=== PATIENT | female | born 1990 | race American Indian/Alaskan Native ===

== ENCOUNTER 2016-12-30 05:15 | Inpatient (IN) | payer OTHER ==
[2016-12-30 05:24] VITALS: BMI 22.8
--- NOTE | 2016-12-30 06:09 | OBHP ---
Datetime: 12/30/2016 06:05 IP Adm Impression: Term, intrauterine ; Active labor; Intact Membranes IP Admit Plan: Admit to unit; Initiate labor protocol Admit Comment, IP Provider: at 39.5weeks came with c/o ctxs started at 2.15 am , 05/05, q2-4 mi n, no vb, lof,+fm. obhx primi pmh den medc pnv all nkda psh den soch den ve 100/0 a/p g10 at 39/5weeks in labor dmit to l_d npo/ivf labs cot henri and efm pain magement gbs for unknown gbs Dr Roman aware Pelvic Type - PN: Adequate Extremities - PN: Normal Abdomen - PN: Normal Back - PN: Normal Breast - PN: Normal Lungs - PN: Normal Heart - PN: Normal Thyroid - PN: Normal Neurologic - PN: Normal HEENT - PN: Normal General - PN: Normal FHR - Baseline A Provider: 130 Contraction Comments Provider: q1-4 Comments, ACOG Physical Exam: gravid,non tender ext no edea,no calf ten IP Hx Assessment: The History has been Reviewed and is Current EGA AdmitDate IP: 39.5 Vital Signs Provider: Reviewed; Within Normal Limits IP Chief Complaint: Uterine contractions NICHD Variability Prov Fetus A: Moderate 6-25bpm NICHD Accel Fetus A IP Provider: [id number] FHR Category Provider Fetus A: Category I Dilatation, Provider: 4 Effacement, Provider: 100 Station, Provider: 0 Genitourinary Exam: Normal DTRs - PN: Normal
[2016-12-30] MEDS ORDERED: Lactated Ringer's 1,000 ML IV SCH (06:15)
[2016-12-30 07:06] LABS: BASO # 0.1 K/uL (0.0-0.2); BASO % 0.9 % (0.0-2.0); EOS # 0.1 K/uL (0.0-0.7); EOS % 0.4 % (0.0-4.0); HEMATOCRIT 31.3 % (34.0-47.0); LYMPH # 2.3 K/uL (1.0-4.3); LYMPH % 16.8 % (20.0-40.0); MEAN CORPUSCULAR HGB CONC 32.9 g/dL (33.0-37.0); MEAN PLATELET VOLUME 9.7 fL (7.2-11.7); MONO % 7.3 % (0.0-10.0); RED CELL DISTRIBUTION WIDTH 15.1 % (11.5-14.5); WHITE BLOOD COUNT 13.8 K/uL (4.8-10.8)
[2016-12-30 07:22] LABS: CHLORIDE 102 mmol/L (98-107); SODIUM 135 mmol/L (132-148)
[2016-12-30 07:25] LABS: ALB/GLOB RATIO 0.9 (1.0-2.1); ALKALINE PHOSPHATASE 201 U/L (38-126); ALT/SGPT 14 U/L (9-52); AST/SGOT 26 U/L (14-36); BILIRUBIN,TOTAL 0.6 mg/dL (0.2-1.3); BLOOD UREA NITROGEN 7 mg/dL (7-17); CARBON DIOXIDE 22 mmol/L (22-30); GFR AFRICAN-AMERICAN > 60; TOTAL PROTEIN 7.1 g/dL (6.3-8.3)
[2016-12-30 07:26] LABS: CALCIUM 8.9 mg/dl (8.6-10.4); GLUCOSE,RANDOM 97 mg/dL (65-105)
[2016-12-30 07:47] LABS: URINE BACTERIA RARE (<OCC); URINE BILIRUBIN NEGATIVE (NEGATIVE); URINE BLOOD NEGATIVE (NEGATIVE); URINE COLOR Yellow (YELLOW); URINE GLUCOSE (UA) NORMAL (Normal); URINE KETONE NEGATIVE (NEGATIVE); URINE LEUKOCYTE ESTERASE NEG Leu/uL (Negative); URINE PROTEIN NEGATIVE (NEGATIVE); URINE UROBILINOGEN NORMAL mg/dL (0.2-1.0); WBC URINE 2 /hpf (0-5)
[2016-12-30] MEDS ORDERED: Bupivacaine 0.125%/FentaNYL 200 ML EPI ONE (08:04)
--- NOTE | 2016-12-30 08:42 | OBPN ---
Datetime: 12/30/2016 08:33 IP Progress Impression: Normal progression of labor; Reassuring heart rate IP Procedures: Artificial ROM; Sterile Vag Exam IP Progress Plan: Continue present management; Anticipate Vaginal Delivery FHR - Baseline A Provider: 140 Gestation - Est Wks by US: 39.5 Presentation-Admit: Vertex IP Progress Note Comment: IUP at 39.5wks in active labor, s/p Epidural anesthesia ARM done: meconium Cx: /- Assessment: IUP at 39.5wks in Labor Plan: Continue labor monitoring. NICHD Accel Fetus A IP Provider: 15X15 FHR Category Provider Fetus A: Category I NICHD Variability Prov Fetus A: Moderate 6-25bpm Dilatation, Provider: 7 Effacement, Provider: 100 Station, Provider: -1 NICHD Decel Fetus A IP Provider: None Datetime: 12/30/2016 06:05 Contraction Comments Provider: q1-4 Vital Signs Provider: Reviewed; Within Normal Limits
--- NOTE | 2016-12-30 10:19 | OBDS ---
DELIVERY PERSONNEL Delivery Doctor: Seymour Julien MD MATERNAL INFORMATION Delivery Anesthesia: Epidural Maternal Complications: None Provider Comments: Uncomplicated spontaneous vaginal delivery of a viable female infant with BW of 2 765gm with hyperextended Right knee. scores of 9 and 9. LABOR SUMMARY EDC: 01/01/2017 00:00 LABOR INFORMATION Group B Beta Strep: Negative (Annotations: 12/10/2016) MEMBRANES Membranes Rupture Method: Artificial Rupture of Membranes: 12/30/2016 08:23 Length of Rupture (hrs): 1.52 Amniotic Fluid Color: Light Meconium Amniotic Fluid Amount: Moderate Amniotic Fluid Odor: None BABY A INFORMATION Infant Delivery Date/Time: 12/30/2016 09:54 Method of Delivery: Vaginal Born in Route : No : N/A Forceps: N/A Vacuum Extraction: N/A Shoulder Dystocia : No SHOULDER DYSTOCIA BABY A Delivery Date/Time: 12/30/2016 09:54 PRESENTATION/POSITION BABY A Presentation: Cephalic Cephalic Presentation: Vertex Vertex Position: Left Occipital Anterior Breech Presentation: N/A PLACENTA INFORMATION BABY A Placenta Method of Delivery: Expressed Placenta Status: Delivered SCORES BABY A Heart Rate 1 min: >100 bpm Resp Effort 1 min: Good Cry Reflex Irritability 1 min: Cough or Sneeze or Pulls Away Muscle Tone 1 min: Active Motion Color 1 min: Body [place], Extremities Blue SCORE 1 MIN: 9 Heart Rate 5 min: >100 bpm Resp Effort 5 min: Good Cry Reflex Irritability 5 min: Cough or Sneeze or Pulls Away Muscle Tone 5 min: Active Motion Color 5 min: Body [place], Extremities Blue SCORE 5 MIN: 9 INFANT INFORMATION BABY A Gestational Age at Delivery: 39.5 Gestational Status: Term Infant Outcome : Liveborn Infant Condition : Stable Infant Sex: Female CORD INFORMATION BABY A No. Cord Vessels: 3 Nuchal Cord : N/A Infant Suction: Mouth; Nose ASSESSMENT BABY A Infant Complications: None Physical Findings Other: hyperextended right knee Respirations: Appears Normal General Inspector/ALS Called : No Care By: Dr Tavares Transferred To: Remains with Mother
[2016-12-30] MEDS ORDERED: Oxytocin 30 UNIT 30 UNITS/500 ML BAG IV SCH (11:15)
[2016-12-31 07:35] LABS: BASO # 0.1 K/uL (0.0-0.2); BASO % 0.4 % (0.0-2.0); MEAN CORPUSCULAR HEMOGLOBIN 28.2 pg (27.0-31.0)
[2016-12-31 07:42] LABS: EOS # 0.1 K/uL (0.0-0.7); EOS % 0.4 % (0.0-4.0); HEMATOCRIT 27.1 % (34.0-47.0); LYMPH # 2.4 K/uL (1.0-4.3); LYMPH % 17.1 % (20.0-40.0); MEAN CORPUSCULAR HGB CONC 33.2 g/dL (33.0-37.0); MEAN PLATELET VOLUME 9.6 fL (7.2-11.7); MONO # 1.1 K/uL (0.0-0.8); MONO % 7.7 % (0.0-10.0); RED CELL DISTRIBUTION WIDTH 15.2 % (11.5-14.5)
[2016-12-31 08:07] VITALS: O2SAT 99
[2017-01-01 00:10] VITALS: RESP 20
[2017-01-01 08:36] VITALS: BP 116/72; PULSE 70; TEMP 99
--- NOTE | 2017-01-02 14:09 | OBPPN ---
Datetime: 01/01/2017 14:08 PP Pain Prov: Within normal limits PP Nausea Prov: Denies PP Flatus Prov: Yes PP Breasts Prov: Normal PP Heart Prov: Normal PP Lungs Prov: Normal PP Abdomen/Uterus Prov: Normal PP Lochia Prov: Normal PP Vulva/Perineum Prov: Normal PP CVA Tenderness Prov: Normal PP Extremities Prov: Normal Vital Signs Provider PP: Reviewed Datetime: 12/30/2016 13:59 PP C/S Incision Prov: Normal PP Comments Phys Exam Prov: Abd: Soft, NT, BS- present Ut - firm PP Impression Prov: Normal progression PP Progress Note Prov: S/P , PPD#1 Clinically Stable. Plan: Continue .
--- NOTE | 2017-01-02 14:11 | OBPPN ---
Datetime: 01/01/2017 14:08 PP C/S Incision Prov: Normal PP Comments Phys Exam Prov: Abd: Soft, NT, BS- present UT- Firm PP Impression Prov: Normal progression PP Progress Note Prov: S/P , PPD#2 CLinically Stable. Plan: D/C Home
--- NOTE | 2017-01-02 14:12 | OBDCSUM ---
Datetime: 01/01/2017 12:18 Discharge Instructions, Provider: Routine instructions given Discharge Diagnosis, Provider: Term Delivered Contraception discussed, Prov: Yes Discharge Comment, Provider: S/U Uncomplicated , Clinically Stable Discharge Diagnosis Prov Other: S/U Uncomplicated , Clinically Stable
== END 2017-01-01 15:15 | disposition home or self-care (01) | DRG 775 ==
LOC: C.EROB 05:15 → C.4D 06:10 → C.4M 14:00
PROVIDERS: ADMIT Obstetrics & Gynecology; ATTEND Obstetrics & Gynecology
PROC: 10E0XZZ Delivery of Products of Conception, External Approach (ICD-10-PCS; principal; 2016-12-30)
PROC: 10907ZC Drainage of Amniotic Fluid, Therapeutic from Products of Conception, Via Natural or Artificial Opening (ICD-10-PCS; 2016-12-30)
DX: O77.0 Labor and delivery complicated by meconium in amniotic fluid (principal); Z37.0 Single live birth; Z3A.39 39 weeks gestation of pregnancy

== ENCOUNTER 2016-12-30 05:16 | Emergency (ER) | payer OTHER ==
[2016-12-30 05:24] VITALS: BMI 22.8
== END 2016-12-30 06:18 | disposition still patient (30) ==
LOC: C.ER 05:16
DX: O75.89 Other specified complications of labor and delivery (principal); Z3A.39 39 weeks gestation of pregnancy